=== PATIENT | male | born 1995 | race Caucasian/White ===

== ENCOUNTER → 2016-09-07 | Outpatient (CLI) | payer BC ==
[2016-09-15 19:52] LABS: CHLAMYDIA TRACH RNA*** NOT DETECTED (NOT DETECTED); GC (NEIS GONORRHOEAE)RNA** NOT DETECTED (NOT DETECTED)
== END | disposition home or self-care (01) ==
LOC: C.LAB 18:20
PROVIDERS: ATTEND Nurse Practitioner Family
DX: N34.2 Other urethritis (principal)

== ENCOUNTER → 2016-09-07 | Outpatient (CLI) | payer BC ==
--- NOTE | 2016-09-07 12:32 | DIAGNOSTIC IMAGING REPORT ---
KUB HISTORY: N34.2 [id number] COMPARISON: None. FINDINGS: The bowel gas pattern is unremarkable. There are no dilated loops of small bowel to suggest an obstruction. No renal calculi. No ureteral calculi. Moderate stool within the colon. No pneumoperitoneum or pneumatosis. Lucencies in the deep pelvis is likely technical. IMPRESSION: No renal or ureteral stones. Moderate amount of stool within the colon. Electronically signed by: Varinder Romero M.D. 09/07/2016 12:30 PM Dictated Date/Time: 09/07/2016 12:24 PM
== END | disposition home or self-care (01) ==
LOC: C.RAD 11:26
PROVIDERS: ATTEND Nurse Practitioner Family
DX: N34.2 Other urethritis (principal)